=== PATIENT | male | born 1990 | race Hispanic/Latino ===

== ENCOUNTER 2022-06-14 12:05 | Emergency (ER) | payer SELFPAY ==
[2022-06-14] MEDS ORDERED: Meclizine HCl 25 MG TAB ONE (12:53)
[2022-06-14 13:53] LABS: #Neutrophils 10.9 10x3/uL (1.5-8.4); %Basophils 0.2 % (0.0-2.0); %Eosinophils 0.1 % (0.0-6.0); %Lymphocytes 8.9 % (18.0-47.0); %Monocytes 7.6 % (0.0-10.0); %Neutrophils 82.8 % (40.0-75.0); Hemoglobin 14.1 g/dL (13.5-17.5); Mean Corpuscular HGB CONC 36.5 g/dL (32.0-36.0); Mean Corpuscular Hemoglobin 33.2 pg (27.0-33.0); Mean Corpuscular Volume 90.8 fl (81.2-95.1); Mean Platelet Volume 9.3 fl (7.4-10.4); Platelet Count 299 10x3/uL (150-450); Red Blood Cell (RBC) Count 4.25 10x6/uL (4.32-5.72); White Blood Cell (WBC) Count 13.1 10x3/uL (3.5-10.5)
[2022-06-14 14:13] LABS: ALT (SGPT) 22 U/L (8-55); AST (SGOT) 19 U/L (5-34); Albumin 4.4 g/dL (3.5-5.0); Alkaline Phosphatase 46 U/L (40-110); Anion Gap 13 mmol/L (10-20); BUN (Urea Nitrogen) 14 mg/dL (8.9-20.6); Bilirubin, Total 0.8 mg/dL (0.2-1.2); Calc. Creatinine Clearance 0 mL/min (70-130); Calcium 9.6 mg/dL (7.8-10.44); Carbon Dioxide 25 mmol/L (22-29); Chloride 104 mmol/L (98-107); Estimated GFR 116; Glucose 105 mg/dL (70-105); Magnesium 1.9 mg/dL (1.6-2.6); Potassium 3.6 mmol/L (3.5-5.1); Protein, Total 7.4 g/dL (6.0-8.3); Sodium 138 mmol/L (136-145)
== END 2022-06-14 14:57 | disposition home or self-care (01) ==
LOC: CSHERS 12:05
DX: F41.0 Panic disorder [episodic paroxysmal anxiety] (principal); R11.2 Nausea with vomiting, unspecified; R20.2 Paresthesia of skin
CPT/HCPCS: 80053; 83735; 85025; 96360